=== PATIENT | female | born 1985 | race African-American/Black ===

== ENCOUNTER 2019-04-21 09:08 | Emergency (ER) | payer OTHER ==
[~2019-04-21] VITALS: Ht 165.1 cm; Wt 60.8 kg
[2019-04-21 09:51] LABS: HEMATOCRIT 38.9 % (37.0-47.0); HEMOGLOBIN 12.8 gm/dL (12.0-15.0); MCH 26.9 pg (26.0-34.0); MCHC 32.9 g/dL (28.0-37.0); MCV 81.9 fL (80.0-100.0); RBC 4.75 mil/uL (4.20-5.00); RDW 12.9 % (10.5-14.5); WBC 5.9 thou/uL (4.0-11.0)
[2019-04-21 10:00] LABS: CALCIUM 9.3 mg/dL (8.5-10.1); CREATININE 0.8 mg/dL (0.6-1.0); POTASSIUM 3.8 mmol/L (3.5-5.1)
[2019-04-21] MEDS ORDERED: FLAGYL500 M1 PO (12:21)
[2019-04-21 12:47] VITALS: BP 95/73
== END 2019-04-21 12:48 | disposition home or self-care (01) ==
LOC: ER 09:08
PROVIDERS: Emergency Medicine
DX: O20.0 Threatened abortion (principal); N76.0 Acute vaginitis; Z3A.01 Less than 8 weeks gestation of pregnancy